=== PATIENT | male | born 1985 | race Two or more races ===

== ENCOUNTER 2022-04-08 07:51 | Day surgery (SDC) | payer OTHER ==
[2022-04-01 12:19] LABS: Urine WBC None Seen /hpf (0 - 3)
[2022-04-01 12:44] LABS: Basophils # (auto) 0 10 ^3/uL (0-0.2); Basophils % (auto) 0.5 % (0.0-2.0); Eosinophils # (auto) 0.1 10 ^3/uL (0-0.8); Eosinophils % (auto) 1.6 % (0.0-7.0); Hematocrit 44.7 % (41.0-53.0); Hemoglobin 15.9 g/dL (13.5-17.5); Lymphocytes # (auto) 1.9 10 ^3/uL (0.4-5.4); Mean Corpuscular Hemoglobin 30.6 pg (28.0-32.0); Mean Corpuscular Hgb Conc. 35.5 g/dL (32.0-36.0); Monocytes # (auto) 0.3 10 ^3/uL (0-1.3); Monocytes % (auto) 5.4 % (0.0-12.0); Neutrophils # (auto) 3.5 10 ^3/uL (1.6-8.6); Neutrophils % (auto) 59.5 % (37.0-80.0); Nucleated Red Blood Cells % 0.1 %; Red Cell Distribution Width 12.6 % (11.8-14.3); White Blood Cell 5.8 10^3/uL (4.4-10.8)
[2022-04-01 13:16] LABS: Urine Bacteria NONE SEEN /hpf (None Seen); Urine Blood Negative /uL (Negative); Urine Specific Gravity 1.011 (1.001-1.035)
[2022-04-01 13:25] LABS: Albumin 4.3 g/dL (3.4-5.0); BUN/Creatinine Ratio 17.8; Bilirubin, Total 1.2 mg/dL (0.2-1.0); Calcium 9.4 mg/dL (8.5-10.1); Total Protein 7.4 g/dL (6.4-8.2)
[~2022-04-08] VITALS: Ht 177.8 cm; Wt 88.0 kg
[~2022-04-08 07:51] MED LIST: ALBUAER3 IN; BUPR150T8 PO; FLUT250M2 IN
[2022-04-08] MEDS ORDERED: METOCLOPRAMIDE HCL 5MG/ml INJ 2ml VIAL IV PRN (08:45)
[2022-04-08] MEDS ORDERED: MORPHINE SULFATE INJ 2 MG/ml SYRG IV PRN (08:45)
[2022-04-08] MEDS ORDERED: HYDROmorphone HCL 2 MG/ML VL/or syr IV PRN ×2 (08:45)
[2022-04-08] MEDS ORDERED: LIDOCAINE 1%HCL (LOCAL ANESTH) 10 ML MDV ONE (10:07)
[2022-04-08] MEDS ORDERED: BUPIVACAINE HCL 0.25% P/F 10 ML VIAL ONE (10:08)
[2022-04-08] MEDS ORDERED: BUPIVACAINE 0.25% INJ 50ML VIAL ONE (10:08)
[2022-04-08] MEDS ORDERED: CLINDAMYCIN 600MG IV 50 ML IV ONE (10:40)
[2022-04-08] MEDS ORDERED: fentaNYL CITRATE 100 MCG/2 ML VL ONE (10:53)
[2022-04-08] MEDS ORDERED: SODIUM CHLORIDE LOCK 10 ML ONE (10:54)
[2022-04-08] MEDS ORDERED: MIDAZOLAM HCL 2MG/2ML 2ml VIAL (1mg/ml) ONE (10:54)
[2022-04-08] MEDS ORDERED: PROPOFOL 10 MG/ML 20 ML IV ONE (10:54)
[2022-04-08 12:07] VITALS: BP 118/61
== END 2022-04-08 12:14 | disposition home or self-care (01) ==
LOC: SUR 07:51
PROVIDERS: ATTEND Podiatrist
DX: M72.2 Plantar fascial fibromatosis (principal); Z20.822 Contact with and (suspected) exposure to COVID-19
CPT/HCPCS: 28060; 36415; 80053; 81001; 85025; 85730; J2001; J2250; J2704; J3010; J3490; U0003

== ENCOUNTER → 2022-12-18 | Outpatient (CLI) | payer OTHER | END | disposition home or self-care (01) | LOC: LAB 11:25 | PROVIDERS: ATTEND Family Medicine | DX: D17.39 Benign lipomatous neoplasm of skin and subcutaneous tissue of other sites (principal) ==

== ENCOUNTER → 2023-04-16 | Outpatient (CLI) | payer OTHER | END | disposition home or self-care (01) | LOC: LAB 15:00 | PROVIDERS: ATTEND Family Medicine | DX: D17.0 Benign lipomatous neoplasm of skin and subcutaneous tissue of head, face and neck (principal) | CPT/HCPCS: 88302 ==